=== PATIENT | female | born 1940 | race Caucasian/White ===

== ENCOUNTER 2019-05-06 13:27 | Observation (INO) | payer OTHER, MEDICARE ==
--- OUTSIDE RECORDS SUMMARY | 2019-05-06 13:30 | XMS REPORT ---
:1940 [facility] Address [address] [place] [address] Dr. Burch [address] [place] [id number] Care Team Providers Name Role Phone Unavailable Unavailable Unavailable Problems This patient has no known problems. Allergies, Adverse Reactions, Alerts This patient has no known allergies or adverse reactions. Medications This patient has no known medications.
--- OUTSIDE RECORDS SUMMARY | 2019-05-06 13:30 | XMS REPORT | Clinical Summary ---
:1940 Author Organization [facility] Address [address] [place] [address] Care Team Providers Name Role Phone Scott Delatorre MD Primary Care Provider Allergies No Known Allergies Medications Medication Sig Dispensed Refills Start Date End Date Status simvastatin (ZOCOR) 20 MG Take 20 mg by 0 Active tablet mouth nightly. levothyroxine (SYNTHROID, Take 75 mcg by 0 Active LEVOXYL) 75 mcg tablet mouth daily. spironolactone Take 25 mg by 0 Active (ALDACTONE) 25 MG tablet mouth daily. Active Problems No known active problems Encounters Date Type Specialty Care Team Description 12/12/2018 Surgery Orthopedic Surgery Sae, ARTHROCENTESIS, TMJ, MD Neeraj, MANIPULATION TMJ DDS 12/12/2018 Anesthesia Event Orthopedic Surgery Lissy Torres MD Jatzlau, Amybeth, WILMA 12/12/2018 Hospital Encounter Orthopedic Surgery Gatedieter, Arthralgia of left temporomandibular joint (Primary Dx); MD Pickard Trismus DDS 12/06/2018 Pre-Admit Testing Pre-Admission Gateno, Arthralgia of left temporomandibular joint; Appointment Testing MD Neeraj, Lu DDS 11/14/2018 Hospital Encounter Radiology Sae, Articular disc disorder MD Neeraj, of left temporomandibular DDS joint 11/02/2018 Transcribe Orders Access Neeraj Quevedo MD, DDS 11/02/2018 Transcribe Orders Access Sae, Articular disc disorder MD Neeraj, of left temporomandibular DDS joint (Primary Dx) after 05/05/2018 Social History Tobacco Use Types Packs/Day Years Used Date Never Smoker Smokeless Tobacco: Never Used Alcohol Use Drinks/Week oz/Week Comments No Alcohol Habits Answer Date Recorded How often do you have a drink containing alcohol? Never 12/06/2018 How many drinks containing alcohol do you have on a typical Not asked day when you are drinking? How often do you have six or more drinks on one occasion? Not asked Sex Assigned at Date Recorded Not on file Job Start Date Occupation Industry Not on file Not on file Not on file Travel History Travel Start Travel End No recent travel history available. Last Filed Vital Signs Vital Sign Reading Time Taken Comments Blood Pressure 165/83 12/12/2018 10:47 AM CDT Pulse 73 12/12/2018 10:47 AM CDT Temperature 36.7 C (98 F) 12/12/2018 10:47 AM CDT Respiratory Rate 14 12/12/2018 10:47 AM CDT Oxygen Saturation 100% 12/12/2018 10:47 AM CDT Inhaled Oxygen Concentration - - Weight 57.2 kg (126 lb) 12/12/2018 9:55 AM CDT Height 165.1 cm (5' 5") 12/12/2018 9:55 AM CDT Body Mass Index 20.97 12/12/2018 9:55 AM CDT Plan of Treatment Health Maintenance Due Date Last Done Comments SHINGLES VACCINES (#1) 1988 65+ PNEUMOCOCCAL VACCINE (1 of 2 - PCV13) 2003 INFLUENZA VACCINE 04/19/2019 Procedures Procedure Name Priority Date/Time Associated Diagnosis Comments CLOSED REDUCTION, 12/12/2018 10:11 Articular disc disorder of DISLOCATION, JOINT, AM CDT left temporomandibular TEMPOROMANDIBULAR, WITH joint INTERMAXILLARY FIXATION Case Notes @[facility] [employer] ANESTH FROM GENERAL TO MAC 12/11/18TW Special Needs EST 1HR ECG PRE/POST OP Routine 12/06/2018 5:15 Arthralgia of left Results for PM CDT temporomandibular joint this procedure are in the results section. ESTIMATED GFR Routine 12/06/2018 5:03 Results for PM CDT this procedure are in the results section. BASIC METABOLIC PANEL Routine 12/06/2018 5:03 Arthralgia of left Results for PM CDT temporomandibular joint this procedure are in the results section. HC COMPLETE BLD COUNT Routine 12/06/2018 5:03 Trismus Results for W/AUTO DIFF PM CDT Arthralgia of left this procedure temporomandibular joint are in the results section. MRI TEMPOROMANDIBULAR Routine 11/14/2018 1:57 Articular disc disorder Results for JOINTS PM [employer] of left this procedure temporomandibular joint are in the results section. after 05/05/2018 Results ECG Pre/Post Op (12/06/2018 5:15 PM CDT) Ventricular rate 62 [facility] Atrial rate 62 [facility] OH interval 120 [facility] QRSD interval 88 [facility] QT interval 404 [facility] QTC interval 410 [facility] P axis 1 70 [facility] QRS axis 1 82 [facility] T wave axis 49 [facility] EKG impression Normal sinus [facility] rhythm-Normal ECG-No previous ECGs available-Electronicall y Signed By Rivka Zamora MD ([id number]) on 12/07/2018 6:31:13 PM Specimen Narrative Performed At Performing Organization Address City/[facility]/Zipcode Phone Number [facility] [address] [place] [address] Estimated GFR (12/06/2018 5:03 PM CDT) Pathologist [facility] Estimated GFR 50 (A) mL/min/1.73 [facility] Comment: HOSPITAL CatergoryUnitsInterpretation G1 >=90 Normal or high G2 60-89Mildly decreased Q1q29-84Vawfgd to moderately decreased N2o27-32Smlsqbfpkl to severely decreased G4 15-29Severely decreased G5 <15Kidney failure The eGFR was calculated using the Chronic Kidney Disease Epidemiology Collaboration (CKD-EPI) equation. Interpretation is based on recommendations of the National Kidney Foundation-Kidney Disease Outcomes Quality Initiative (NKF-KDOQI) published in 2014. Specimen Plasma specimen Performing Organization Address City/State/Zipcode Phone Number [facility] DEPARTMENT OF PATHOLOGY AND [address] [place] [address] GENOMIC MEDICINE [address] [address] CBC with platelet and differential (12/06/2018 5:03 PM CDT) WBC 6.63 4.50 - 11.00 [facility] RBC 4.03 (L) 4.20 - 5.50 [facility] m/uL HOSPITAL HGB 12.3 12.0 - 16.0 [facility] g/dL HOSPITAL HCT 38.0 37.0 - 47.0 % [facility] MCV 94.3 82.0 - 100.0 [facility] MCH 30.5 27.0 - 34.0 pg [facility] MCHC 32.4 31.0 - 37.0 [facility] g/dL HOSPITAL RDW - SD 46.4 37.0 - 55.0 fL [facility] MPV 11.4 8.8 - 13.2 [facility] Platelet count 193 150 - 400 k/uL [facility] Nucleated RBC 0.00 /100 WBC [facility] Neutrophils 53.5 39.0 - 69.0 % [facility] Lymphocytes 33.8 25.0 - 45.0 % [facility] Monocytes 7.4 0.0 - 10.0 % [facility] Eosinophils 3.9 0.0 - 5.0 % [facility] Basophils 1.2 (H) 0.0 - 1.0 % [facility] Immature granulocytes 0.2Comment: 0.0 - 1.0 % [facility] "[facility] granulocytes" (promyelocytes , myelocytes, metamyelocytes ) Specimen Blood Performing Organization Address City/State/Zipcode Phone Number [facility] DEPARTMENT OF PATHOLOGY AND [address] [place] [address] GENOMIC MEDICINE [address] [address] Basic metabolic panel (12/06/2018 5:03 PM CDT) Sodium 138 135 - 148 mEq/L [facility] Potassium 4.4 3.5 - 5.0 mEq/L [facility] Chloride 100 98 - 112 mEq/L [facility] CO2 24 24 - 31 mEq/L [facility] Anion gap 14@ANIO 7 - 15 mEq/L [facility] BUN 16 8 - 23 mg/dL [facility] Creatinine 1.06 (H) 0.50 - 0.90 mg/dL [facility] Glucose 78 65 - 99 mg/dL [facility] Calcium 10.2 8.8 - 10.2 mg/dL [facility] Specimen Plasma specimen Performing Organization Address City/State/Zipcode Phone Number [facility] DEPARTMENT OF PATHOLOGY AND [address] [place] [address] GENOMIC MEDICINE [facility] [address] [place] [address] MRI Temporomandibular Joints (11/14/2018 1:57 PM [employer]) Specimen Narrative Performed At EXAMINATION:MRI TEMPOROMANDIBULAR JOINTS [facility] CLINICAL HISTORY:M26.632 Articular disc disorder of left temporomandibular joint, 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 TECHNIQUE: Multiplanar MRI imaging of the TMJs without IV Gadolinium was performed during open and closed positions. Dynamic cine sequence was obtained. FINDINGS: RIGHT: There is anterior subluxation and translation of the intra-articular disc during closed mouth position which demonstrates complete reduction and recapture during open mouth position. The mandibular condyle demonstrates normal contour and bone bautista signal. The articular fossa is unremarkable. There is no evidence of osteoarthritic changes. There is no joint effusion. LEFT: There is anterior subluxation and significant anterior translation of the intra -articular disc during closed mouth position which demonstrates no evidence of reduction or recapture during open mouth position. There is minimal joint effusion in the superior joint compartment. There is a limited mouth opening. The mandibular condyle demonstrates normal contour and bone bautista signal. The articular fossa is unremarkable. There is no evidence of osteoarthritic changes. IMPRESSION: Mild anterior subluxation of the intra-articular disc in the right temporomandibular joint with complete reduction and recapture during open mouth position and no evidence of joint effusion or osteoarthritic joint changes. Anterior subluxation of the intra-articular disc in the left temporomandibular joint during closed mouth position with no evidence of recapture or reduction during open mouth position with associated li mited joint motion. There is minimal joint effusion in the superior joint compartment. 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 TECHNIQUE: Multiplanar MRI imaging of the TMJs without IV Gadolinium was performed during open and closed positions. Dynamic cine sequence was obtained. FINDINGS: RIGHT: There is anterior subluxation and translation of the intra-articular disc during closed mouth position which demonstrates complete reduction and recapture during open mouth position. The mandibular condyle demonstrates normal contour and bone bautista signal. The articular fossa is unremarkable. There is no evidence of osteoarthritic changes. There is no joint effusion. LEFT: There is anterior subluxation and significant anterior translation of the intra -articular disc during closed mouth position which demonstrates no evidence of reduction or recapture during open mouth position. There is minimal joint effusion in the superior joint compartment. There is a limited mouth opening. The mandibular condyle demonstrates normal contour and bone bautista signal. The articular fossa is unremarkable. There is no evidence of osteoarthritic changes. IMPRESSION: Mild anterior subluxation of the intra-articular disc in the right temporomandibular joint with complete reduction and recapture during open mouth position and no evidence of joint effusion or osteoarthritic joint changes. Anterior subluxation of the intra-articular disc in the left temporomandibular joint during closed mouth position with no evidence of recapture or reduction during open mouth position with associated limited joint motion. There is minimal joint effusion in the superior joint compartment. [id number] Performing Organization Address City/State/Zipcode Phone Number [facility] [address] [place] [address] after 05/05/2018 Insurance Payer Benefit Plan / Subscriber ID Effective Phone Address Type Group Dates MEDICARE MEDICARE PART A xxxxxxxxxxx 2003-[place], [place] Medicare AND B ent COMMERCIAL MISC MISC COMMERCIAL xxxxxxxxx 2018-[facility] Commercial ent Advance Directives Type Date Recorded Patient Weight Recorder Explanation Advance Directives, Living Will and Medical Power of Retail Event And Sales Assistant
--- NOTE | 2019-05-06 14:55 | RAD REPORT ---
EXAM DESCRIPTION: CT - Head Brain Wo Cont - 05/06/2019 2:23 pm CLINICAL HISTORY: Syncope COMPARISON: None. TECHNIQUE: Computed axial tomography of the head was obtained. IV contrast was not requested. All CT scans are performed using dose optimization technique as appropriate and may include automated exposure control or mA/KV adjustment according to patient size. FINDINGS: An intracranial bleed is not seen . The ventricles are normal in caliber. No extra-axial fluid collection is noted. Fluid within the sinuses/ mastoids is not seen. IMPRESSION: No acute intracranial abnormality is seen. If patient's symptoms persist MRI of the bra in would be recommended.
[2019-05-06 15:02] LABS: Absolute Lymphocytes (CBC) 0.5 K/uL (0.7-4.9); Basophils % 0.4 % (0-1.3); Hematocrit 38.2 % (36.0-45.0); Lymphocytes % 10.3 % (15.3-44.8); MPV 8.9 fL (7.6-11.3); RBC Red Blood Cell Count 4.09 M/uL (3.86-4.86)
[2019-05-06 15:04] LABS: Protime INR 0.89
[2019-05-06 15:23] LABS: ALT/SGPT 26 U/L (12-78); AST/SGOT 32 U/L (15-37); Albumin 3.8 g/dL (3.4-5.0); Alkaline Phosphatase 67 U/L (45-117); BUN Blood Urea Nitrogen 14 mg/dL (7-18); Bicarbonate 26 mmol/L (21-32); Bilirubin Direct < 0.1 mg/dL (0-0.2); Bilirubin Total 0.3 mg/dL (0.2-1.0); Glucose Level 104 mg/dL (74-106); Magnesium 1.7 mg/dL (1.8-2.4); NT PRO-BNP 389 pg/mL (<450); Potassium 4.5 mmol/L (3.5-5.1); Protein, Total 6.6 g/dL (6.4-8.2); Sodium Level 137 mmol/L (136-145); Troponin (Emerg Dept Use Only) < 0.02 ng/mL (0.0-0.045)
[2019-05-06] MEDS ORDERED: MAGNESIUM SULFATE 1 gm IVPB 1 GM/100 ML BAG IV ONE (15:55)
--- NOTE | 2019-05-06 16:05 | RAD REPORT ---
EXAM DESCRIPTION: Bj Single View05/06/2019 1:59 pm CLINICAL HISTORY: Chest pain COMPARISON: 2014 FINDINGS: The lungs appear clear of acute infiltrate. The heart is normal size IMPRESSION: No acute abnormalities displayed
--- NOTE | 2019-05-06 16:11 | ER ---
Nurse's Notes [facility] Name: Libertad Navarro Age: 78 yrs Sex: Female : 1940 Arrival Date: 05/06/2019 Time: 13:38 Bed 23 Private MD: Diagnosis: Syncope and collapse Presentation: 05/06 13:40 Presenting complaint: Patient states: Syncopal episode that occurred while walking at [facility]. Patient reports feeling well, then suddenly became dizzy and nauseous. EMS reports blood pressure on arrival was 80/50 and after 400 mL bolus of NS, patient was feeling better. Transition of care: patient was not received from another setting of care. Onset of symptoms was May 06, 2019. Risk Assessment: Do you want to hurt yourself or someone else? Patient reports no desire to harm self or others. Initial Sepsis Screen: Does the patient meet any 2 criteria? No. Patient's initial sepsis screen is negative. Does the patient have a suspected source of infection? No. Patient's initial sepsis screen is negative. Care prior to arrival: IV initiated. 20 GA, in the right antecubital area, Glucose check: 136. 13:40 Method Of Arrival: EMS: [facility] ss 13:40 Acuity: DICK 3 ss Historical: - Allergies: 13:42 No Known Allergies; ss - PMHx: 13:42 Hypertension; High Cholesterol; Hypothyroidism; ss - PSHx: 13:42 Hysterectomy; colon; foot; Appendectomy; cataract sb; ss - Immunization history:: Adult Immunizations up to date. - Social history:: Smoking status: Patient/guardian denies using tobacco. - Ebola Screening: : Patient denies exposure to infectious person Patient denies travel to an Ebola-affected area in the 21 days before illness onset. Screenin:40 Abuse screen: Denies threats or abuse. Denies injuries from another. Nutritional ss screening: No deficits noted. Tuberculosis screening: Never had TB. Fall Risk None identified. Assessment: 13:40 General: Appears uncomfortable, Behavior is calm, cooperative, Denies fever, feeling ss ill, fatigue, chills. Pain: Denies pain. Neuro: Level of Consciousness is awake, alert, obeys commands, Oriented to person, place, time, situation, Moves all extremities. Full function Gait is steady, Speech is normal, Facial symmetry appears normal, Pupils are PERRLA. Neuro: Reports dizziness, that began suddenly while walking around shop a syncopal episode. Cardiovascular: Capillary refill < 3 seconds is brisk in bilateral fingers Rhythm is regular. Respiratory: Airway is patent Respiratory effort is even, unlabored, Respiratory pattern is regular, symmetrical, Denies cough, shortness of breath labored breathing, pain with respiration, pain with cough, pain with movement. GI: Patient currently denies abdominal pain, diarrhea, nausea, vomiting. : No signs and/or symptoms were reported regarding the genitourinary system. EENT: Oral mucosa is moist. Derm: Skin is intact, is healthy with good turgor, Skin is dry, Skin is pink, warm \T\ dry. normal. Musculoskeletal: Circulation, motion, and sensation intact. Range of motion: intact in all extremities, Swelling absent. 15:24 Reassessment: Patient appears in no apparent distress at this time. Patient and/or rv family updated on plan of care and expected duration. Pain level reassessed. Patient is alert, oriented x 3, equal unlabored respirations, skin warm/dry/pink. 18:51 Reassessment: Patient appears in no apparent distress at this time. Patient and/or rv family updated on plan of care and expected duration. Pain level reassessed. Patient is alert, oriented x 3, equal unlabored respirations, skin warm/dry/pink. Vital Signs: 13:39 BP 149 / 73; Pulse 71; Resp 15; Temp 97.6(O); Pulse Ox 100% on R/A; Weight 53.07 kg; ss Height 5 ft. 5 in. (165.10 cm); Pain 0/10; 14:00 BP 145 / 71; Pulse 70; Resp 17; Pulse Ox 100% on R/A; rv 15:24 BP 147 / 82; Pulse 73; Resp 16; Pulse Ox 100% ; rv 16:30 BP 166 / 76; Pulse 83; Resp 16; Pulse Ox 100% on R/A; rv 17:30 BP 150 / 82; Pulse 73; Resp 16; Pulse Ox 100% on R/A; rv 18:30 BP 159 / 77; Pulse 59; Resp 15; Pulse Ox 100% on R/A; rv 19:51 BP 148 / 70; Pulse 66; Resp 16; Pulse Ox 98% ; rv 13:39 Body Mass Index 19.47 (53.07 kg, 165.10 cm) NIH Stroke Scale Scores: 13:40 NIHSS Score: 0 ED Course: 13:38 Patient arrived in ED. ss 13:39 Kuldip Logan PA is PHCP. cp 13:39 Francisco Bellamy MD is Attending Physician. cp 13:39 Arm band placed on right wrist. ss 13:40 Patient has correct armband on for positive identification. Placed in gown. Bed in low ss position. Call light in reach. Side rails up X2. patient monitor on. Pulse ox on. NIBP on. 13:40 Maintain EMS IV. Dressing intact. Good blood return noted. Site clean \T\ dry. Gauge \T\ ss site: 20 gauge in R AC. 13:42 Triage completed. ss 13:47 EKG done, by ED staff. lt1 13:58 XRAY Chest (1 view) In Process Unspecified. EDMS 14:25 CT completed. Patient tolerated procedure well. Patient moved back from CT. mw3 14:26 CT Head Brain wo Cont In Process Unspecified. EDMS 15:17 Titi Colon, FUNMI is Primary Nurse. rv 15:17 Wound care: to abrasion, located on right arm was irrigated with normal saline, dressed rv with 4X4s, Patient tolerated well. applied steri strips on the wound. 16:09 Scott Delatorre MD is Hospitalizing Provider. cp 17:09 Urine Microscopic Only Sent. lt1 19:51 No provider procedures requiring assistance completed. Patient admitted, IV remains in rv place. Administered Medications: 16:03 Drug: Magnesium Sulfate 1 grams Route: IVPB; Infused Over: 1 hrs; Site: right em antecubital; Outcome: 16:10 Decision to Hospitalize by Provider. cp 19:51 Admitted to Tele accompanied by tech, via wheelchair, room 409, with chart, Report rv called to MARCE CHOUDHARY 19:51 Condition: stable 19:51 Instructed on the need for admit. 19:52 Patient left the ED. rv NIH Stroke Scale - NIH Stroke Score Date: 05/06/2019 Time: 13:40 Total Score = 0 1a. Level of Consciousness (LOC) - 0(Alert) 1b. Level of Consciousness (LOC) (Year \T\ Age) - 0(Both) 1c. LOC Commands (Open \T\ Closes Eyes/Head Start Assistant Teacher) - 0(Both) 2. Best Gaze (Lateral Gaze Paresis) - 0(Normal) 3. Visual Field Loss - 0(No visual loss) 4. Facial Palsy - 0(Normal) 5a. Left Arm: Motor (10-second hold) - 0(No drift) 5b. Right Arm: Motor (10-second hold) - 0(No drift) 6a. Left Leg: Motor (5-second hold - always test supine) - 0(No drift) 6b. Right Leg: Motor (5-second hold - always test supine) - 0(No drift) 7. Limb Ataxia (finger/nose \T\ heel/chacon - test with eyes open) - 0(Absent) 8. Sensory Loss (pinprick arms/legs/face) - 0(Normal) 9. Best Language: Aphasia (description/naming/reading) - 0(No aphasia) 10. Dysarthria (speech clarity - read or repeat words) - 0(Normal) 11. Extinction and Inattention (visual/tactile/auditory/spatial/personal) - 0(No abnormality) Initials: ss Signatures: Dispatcher [employer] EDTremayne eSqueira, SKIDDER SKIDDER Abigail Solorzano RN RN ss Kuldip Logan PA PA cp Willis, Michelle mw3 Titi Colon, FUNMI RN Celia Trejo lt1
--- NOTE | 2019-05-06 16:11 | EDPHYS ---
Physician Documentation [facility] Name: Libertad Navarro Age: 78 yrs Sex: Female : 1940 Arrival Date: 05/06/2019 Time: 13:38 Bed 23 Private MD: ED Physician Francisco Bellamy HPI: 05/06 13:50 This 78 yrs old Female presents to ER via EMS with complaints of Syncope. cp 13:50 The patient has experienced syncope, collapsed, lost consciousness. Onset: The cp symptoms/episode began/occurred just prior to arrival. Duration: This was a single episode, that lasted an unknown period of time. Context: the episode(s) was witnessed, by a friend, occurred [place], occurred while the patient was walking, Just prior to the episode the patient experienced dizziness, lightheadedness, weakness. Associated injury: The patient did not suffer any apparent associated injury. Associated signs and symptoms: Pertinent positives: weakness, Pertinent negatives: abdominal pain, chest pain, combativeness, confusion, headache. Current symptoms: general weakness. Historical: - Allergies: 13:42 No Known Allergies; ss - PMHx: 13:42 Hypertension; High Cholesterol; Hypothyroidism; ss - PSHx: 13:42 Hysterectomy; colon; foot; Appendectomy; cataract sb; ss - Immunization history:: Adult Immunizations up to date. - Social history:: Smoking status: Patient/guardian denies using tobacco. - Ebola Screening: : Patient denies exposure to infectious person Patient denies travel to an Ebola-affected area in the 21 days before illness onset. ROS: 13:55 Constitutional: Negative for body aches, chills, fever, poor PO intake. cp 13:55 Eyes: Negative for injury, pain, redness, and discharge. cp 13:55 ENT: Negative for drainage from ear(s), ear pain, sore throat, difficulty swallowing, difficulty handling secretions. 13:55 Cardiovascular: Negative for chest pain, edema, palpitations. 13:55 Respiratory: Negative for cough, shortness of breath, wheezing. 13:55 Abdomen/GI: Negative for abdominal pain, nausea, vomiting, and diarrhea, anorexia, black/tarry stool, rectal bleeding. 13:55 Back: Negative for pain at rest, pain with movement. 13:55 : Negative for urinary symptoms. 13:55 Neuro: Positive for syncope, weakness, Negative for altered mental status, headache. 13:55 All other systems are negative. Exam: 13:50 ECG was reviewed by the Attending Physician. cp 13:58 Constitutional: The patient appears in no acute distress, alert, awake, cp non-diaphoretic, non-toxic, well developed, well nourished. 13:58 Head/Face: Normocephalic, atraumatic. Eyes: Pupils equal round and reactive to light, cp extra-ocular motions intact. Lids and lashes normal. Conjunctiva and sclera are non-icteric and not injected. Cornea within normal limits. Periorbital areas with no swelling, redness, or edema. ENT: Nares patent. No nasal discharge, no septal abnormalities noted. Tympanic membranes are normal and external auditory canals are clear. Oropharynx with no redness, swelling, or masses, exudates, or evidence of obstruction, uvula midline. Mucous membranes moist. Neck: Trachea midline, no thyromegaly or masses palpated, and no cervical lymphadenopathy. Supple, full range of motion without nuchal rigidity, or vertebral point tenderness. No Meningismus. Chest/axilla: Normal chest wall appearance and motion. Nontender with no deformity. No lesions are appreciated. 13:58 Cardiovascular: Rate: normal, Rhythm: regular, Heart sounds: murmur, not appreciated, Edema: is not appreciated, JVD: is not appreciated. 13:58 Respiratory: the patient does not display signs of respiratory distress, Respirations: normal, no use of accessory muscles, no retractions, no splinting, no tachypnea, labored breathing, is not present, Breath sounds: are clear throughout, no decreased breath sounds, no stridor, no wheezing. 13:58 Abdomen/GI: Inspection: abdomen appears normal, Bowel sounds: active, all quadrants, Palpation: abdomen is soft and non-tender, in all quadrants. 13:58 Back: pain, is absent, ROM is normal. 13:58 Skin: no rash present. 13:58 Neuro: Orientation: to person, place \T\ time. Mentation: is normal, Cerebellar function: is grossly normal, Motor: moves all fours, strength is normal, Sensation: is normal. Vital Signs: 13:39 BP 149 / 73; Pulse 71; Resp 15; Temp 97.6(O); Pulse Ox 100% on R/A; Weight 53.07 kg; ss Height 5 ft. 5 in. (165.10 cm); Pain 0/10; 14:00 BP 145 / 71; Pulse 70; Resp 17; Pulse Ox 100% on R/A; rv 15:24 BP 147 / 82; Pulse 73; Resp 16; Pulse Ox 100% ; rv 16:30 BP 166 / 76; Pulse 83; Resp 16; Pulse Ox 100% on R/A; rv 17:30 BP 150 / 82; Pulse 73; Resp 16; Pulse Ox 100% on R/A; rv 18:30 BP 159 / 77; Pulse 59; Resp 15; Pulse Ox 100% on R/A; rv 19:51 BP 148 / 70; Pulse 66; Resp 16; Pulse Ox 98% ; rv 13:39 Body Mass Index 19.47 (53.07 kg, 165.10 cm) ss NIH Stroke Scale Scores: 13:40 NIHSS Score: 0 ss MDM: 13:42 Patient medically screened. cp 14:00 Differential Diagnosis: cardiac arrhythmia, GI bleed, idiopathic syncope, seizure, cp vasovagal episode. 16:06 Data reviewed: vital signs, nurses notes, lab test result(s), EKG, radiologic studies, cp CT scan, I have discussed the patient's presentation/case with the attending Emergency Department Physician; and as a result, I will admit patient. Test interpretation: by ED physician or midlevel provider: ECG, plain radiologic studies. Counseling: I had a detailed discussion with the patient and/or guardian regarding: the historical points, exam findings, and any diagnostic results supporting the discharge/admit diagnosis, lab results, radiology results, the need for further work-up and treatment in the hospital. Response to treatment: the patient's symptoms have markedly improved after treatment, and as a result, I will admit patient. Physician consultation: Sharon Fitzgerald MD was called at 16:08, was contacted at 16:08, regarding admission, to the telemetry unit. patient's condition, would like consultation with Dr. DR Anguiano. 05/06 13:39 Order name: Basic Metabolic Panel; Complete Time: 15:36 cp 05/06 13:39 Order name: CBC with Diff; Complete Time: 15:36 cp 05/06 13:39 Order name: LFT's; Complete Time: 15:36 cp 05/06 13:39 Order name: Magnesium; Complete Time: 15:36 cp 05/06 13:39 Order name: NT PRO-BNP; Complete Time: 15:36 cp 05/06 13:39 Order name: PT-INR; Complete Time: 15:36 cp 05/06 13:39 Order name: Troponin (emerg Dept Use Only); Complete Time: 15:36 cp 05/06 13:39 Order name: XRAY Chest (1 view); Complete Time: 16:34 cp 05/06 16:34 Interpretation: Report review. 05/06 13:49 Order name: CT Head Brain wo Cont; Complete Time: 15:06 cp 05/06 15:07 Interpretation: Report reviewed. 05/06 16:10 Order name: Urine Microscopic Only 05/06 17:11 Order name: Urine Dipstick--Ancillary (enter results) lt1 05/06 17:14 Order name: Echo with Doppler EDPR 05/06 17:15 Order name: Troponin I EDPR 05/06 17:15 Order name: Troponin I EDPR 05/06 13:39 Order name: EKG; Complete Time: 13:41 cp 05/06 13:39 Order name: Cardiac monitoring; Complete Time: 13:48 cp 05/06 13:39 Order name: EKG - Nurse/Tech; Complete Time: 13:48 cp 05/06 13:39 Order name: IV Saline Lock; Complete Time: 14:09 cp 05/06 13:39 Order name: Labs collected and sent; Complete Time: 14:09 cp 05/06 13:39 Order name: O2 Per Protocol; Complete Time: 14:09 05/06 13:39 Order name: O2 Sat Monitoring; Complete Time: 14:09 cp 05/06 16:10 Order name: Urine Dipstick-Ancillary (obtain specimen); Complete Time: 17:09 cp 05/06 17:14 Order name: CONS Physician Consult EDMS 05/06 17:14 Order name: Regular EDMS 05/06 17:15 Order name: Carotid Artery Bilateral EDMS EC:50 Rate is 69 beats/min. Rhythm is regular. [place] interval is normal. QRS interval is normal. cp QT interval is normal. Interpreted by me. Reviewed by me. Administered Medications: 16:03 Drug: Magnesium Sulfate 1 grams Route: IVPB; Infused Over: 1 hrs; Site: right em antecubital; Disposition: 05/06/19 16:10 Hospitalization ordered by Scott Delatorre for Observation. Preliminary diagnosis is Syncope and collapse. - Bed requested for Telemetry/MedSurg (observation). - Status is Observation. rv - Condition is Stable. - Problem is new. - Symptoms have improved. UTI on Admission? No NIH Stroke Scale - NIH Stroke Score Date: 05/06/2019 Time: 13:40 Total Score = 0 1a. Level of Consciousness (LOC) - 0(Alert) 1b. Level of Consciousness (LOC) (Year \T\ Age) - 0(Both) 1c. LOC Commands (Open \T\ Closes Eyes/Assurance Sourcing Manager) - 0(Both) 2. Best Gaze (Lateral Gaze Paresis) - 0(Normal) 3. Visual Field Loss - 0(No visual loss) 4. Facial Palsy - 0(Normal) 5a. Left Arm: Motor (10-second hold) - 0(No drift) 5b. Right Arm: Motor (10-second hold) - 0(No drift) 6a. Left Leg: Motor (5-second hold - always test supine) - 0(No drift) 6b. Right Leg: Motor (5-second hold - always test supine) - 0(No drift) 7. Limb Ataxia (finger/nose \T\ heel/chacon - test with eyes open) - 0(Absent) 8. Sensory Loss (pinprick arms/legs/face) - 0(Normal) 9. Best Language: Aphasia (description/naming/reading) - 0(No aphasia) 10. Dysarthria (speech clarity - read or repeat words) - 0(Normal) 11. Extinction and Inattention (visual/tactile/auditory/spatial/personal) - 0(No abnormality) Initials: Addendum: 05/08/2019 15:35 Co-signature as Attending Physician, Francisco Bellamy MD. Signatures: Dispatcher [employer] Eloisa Barber RN Tremayne Ramsay LVN LVN Abigail Solorzano RN RN Kuldip Logan PA PA cp Starr, Gregory, MD MD Titi Colon RN RN rv Corrections: (The following items were deleted from the chart) 05/06 18:24 16:10 Hospitalization Ordered by Scott Delatorre MD for Observation. Preliminary dw diagnosis is Syncope and collapse. Bed requested for Telemetry/MedSurg (observation). Status is Observation. Condition is Stable. Problem is new. Symptoms have improved. UTI on Admission? No. cp 18:37 18:24 05/06/2019 16:10 Hospitalization Ordered by Scott Delatorre MD for dw Observation. Preliminary diagnosis is Syncope and collapse. Bed requested for Telemetry/MedSurg (observation). Status is Observation. Condition is Stable. Problem is new. Symptoms have improved. UTI on Admission? No. dw 19:52 18:37 05/06/2019 16:10 Hospitalization Ordered by Scott Delatorre MD for rv Observation. Preliminary diagnosis is Syncope and collapse. Bed requested for Telemetry/MedSurg (observation). Status is Observation. Condition is Stable. Problem is new. Symptoms have improved. UTI on Admission? No. dw
[2019-05-06] MEDS ORDERED: ONDANSETRON 4 MG/2 ML VIAL IV PRN (17:04)
[2019-05-06 17:14] LABS: Urine Blood NEGATIVE (NEG); Urine Glucose NEGATIVE (NEG); Urine Protein NEGATIVE (NEG); Urine Specific Gravity 1.015 (1.005-1.030)
[2019-05-06 17:20] LABS: Urine Bacteria 20-50 /HPF (<20); Urine Culture Reflex Order REFLEXED; Urine RBC NONE SEEN /HPF (NONE SEEN)
[2019-05-06 22:50] VITALS: BMI 19.8
[2019-05-07 02:25] VITALS: O2SAT 96
[2019-05-07 06:16] LABS: Absolute Lymphocytes (CBC) 0.9 K/uL (0.7-4.9); Basophils % 0.9 % (0-1.3); Hematocrit 36.7 % (36.0-45.0); Lymphocytes % 29.7 % (15.3-44.8); MPV 9.5 fL (7.6-11.3); RBC Red Blood Cell Count 3.95 M/uL (3.86-4.86)
[2019-05-07 06:42] LABS: Potassium 4.1 mmol/L (3.5-5.1)
--- NOTE | 2019-05-07 06:50 | RAD REPORT ---
EXAM DESCRIPTION: US - CP - 05/06/2019 10:12 pm CLINICAL HISTORY: Syncope Preliminary findings provided at the time of the study. COMPARISON: None. TECHNIQUE: Real-time sonographic evaluation of both carotid systems was performed. Henson scale and Do ppler interrogation were performed with waveform tracing bilaterally. FINDINGS: Normal high resistance waveforms are noted in both external carotid arteries. The common c arotid arteries and internal carotid arteries show normal low resistance waveforms. No significant plaque formation is seen. Peak systolic and end diastolic velocity values and the ICA/ CCA ratios are in the non-hemodynamically significant range. Antegrade flow seen in both vertebral arteries. Velocity values and ratios were recorded and are retained in the patient's imaging records. IMPRESSION: No significant atherosclerotic changes noted. No evidence of a hemodynamically significant stenosis.
[2019-05-07 07:16] LABS: Blood Morphology Comment NOT SEEN (NOT SEEN); Platelet Estimate ADEQ; Urine White Blood Cell Casts OK
--- NOTE | 2019-05-07 07:53 | EKG ---
Test Date: 2019-05-06 Test Time: 13:42:38 Ladle Liner Helper: SUKHWINDERT MEASUREMENT RESULTS: Intervals: Rate: 69 IL: 150 QRSD: 86 QT: 398 QTc: 426 [place]: P: 74 IL: 150 QRS: 79 T: 44 INTERPRETIVE STATEMENTS: Normal sinus rhythm Normal ECG No previous ECG available for comparison Electronically Signed On 05-07-19 07:53:05 CDT by Emiliano Anguiano
--- NOTE | 2019-05-07 08:50 | P.SSS ---
Patient History Date of Service: 05/07/19 Reason for admission: PASSED OUT IN [employer] History of Present Illness: MS. 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 SHE FELT WEAK AND PASSED OUT. SHE HAD NO CHEST PAIN BEFORE AND HAS NOT HAD ANY CARDIAC SYMPTOMS BEFORE THIS. Allergies No Known Drug Allergies Allergy (Verified 10/09/14 03:19) Unknown Home Medications: Levothyroxine [Synthroid*] 0.075 mg PO DAILY 10/09/14 Simvastatin [Zocor*] 20 mg PO BEDTIME 10/09/14 Spironolactone [Aldactone*] 25 mg PO DAILY 10/09/14 - Past Medical/Surgical History Has patient received pneumonia vaccine in the past: Yes Diabetic: Yes -: HTN -: hyperlipidemia -: hypothyroidism -: colon sx -: hysterectomy -: sb cataract sx -: sb bunion removed -: appendectomy -: SBO w/ resection - Social History Smoking Status: Never smoker Alcohol use: No CD- Drugs: No Caffeine use: Yes Place of Residence: Home Review of Systems 10-point ROS is otherwise unremarkable Physical Examination - Vital Signs Temperature: 98.9 F Blood Pressure: 142/64 Pulse: 79 Respirations: 16 Pulse Ox (%): 99 - Physical Exam General: Alert, In no apparent distress HEENT: Atraumatic, PERRLA, Mucous membr. moist/pink, EOMI, Sclerae nonicteric Neck: Supple, 2+ carotid pulse no bruit, No LAD, Without JVD or thyroid abnormality Respiratory: Clear to auscultation bilaterally, Normal air movement Cardiovascular: Regular rate/rhythm, Normal S1 S2 Gastrointestinal: Normal bowel sounds, No tenderness Musculoskeletal: No tenderness Integumentary: No rashes Neurological: Normal gait, Normal speech, Normal strength at 5/5 x4 extr, Normal tone, Normal affect Lymphatics: No axilla or inguinal lymphadenopathy - Studies Laboratory Data (last 24 hrs) 05/06/19 14:50: PT 10.5, INR 0.89 05/06/19 14:50: WBC 5.0, Hgb 12.8, Hct 38.2, Plt Count 143 L 05/06/19 14:50: Sodium 137, Potassium 4.5, BUN 14, Creatinine 1.07, Glucose 104 , Magnesium 1.7 L, Total Bilirubin 0.3, AST 32, ALT 26, Alkaline Phosphatase 67 - Diagnosis (Problem(s)) (1) Syncope Current Visit: Yes Status: Acute Plan: MOST LIKELY ORTHOSTASIS OR VASOVAGAL. NO SIGNS OF CARDIAC ISSUES. NORMAL EKG. NO CAROTID BRUITS. HEART RATE IS GOOD. ORDER MRI TO RULE OUT SMALL STROKE. Qualifiers: Syncope type: vasovagal syncope Qualified Code(s): R55 - Syncope and collapse - Disposition Disposition: ROUTINE DISCHARGE
[2019-05-07] MEDS ORDERED: ASPIRIN 81 MG CHEWABLE TABLET PO SCH (09:00)
--- NOTE | 2019-05-07 13:01 | CON ---
This is an 78-year-old woman. Chief Complaint: Loss of consciousness. History Of Present Illness: Mrs. Navarro was out shopping yesterday, it was in the afternoon. That mor harjeet she did have a bowl of cereal, then quit eating and drinking late in the afternoon. She was anupam pping at [employer], felt warm, felt like she needed to sit down, has flash of water on her face, felt na useated, loss of consciousness. There is no apparent bladder or bowel incontinence, tongue biting, c onfusion. She woke up pretty much immediately after lying flat. No injury. Since being in the hosp ital, cardiac enzymes were normal. All other lab tests are normal. She had a CT scan of the head, t elemetry monitoring, EKG, all that are unremarkable. Carotid Doppler likewise is normal. I believe the patient could be discharged home and await on doing a more extensive workup for arrhythmia only i f she has recurring symptoms. This was most likely vasovagal syncope. JULIA/BHAVIK Voice ID: [id number] Report ID: [id number]
--- NOTE | 2019-05-07 15:24 | RAD REPORT ---
EXAM DESCRIPTION: MRI - Brain W/Wo Cont - 05/07/2019 3:13 pm CLINICAL HISTORY: SYNCOPE Headache, drowsiness COMPARISON: Head Brain Wo Cont dated 05/06/2019 TECHNIQUE: Multi-sequence, multiplanar MR imaging of the brain was performed with contrast. FINDINGS: No intracranial hemorrhage, hydrocephalus, or extra-axial fluid collection.Mild brain atro phy noted. No edema or shift of midline structures. No intracranial mass. DWI is negative for acute C VA. The midline structures are normally formed. Mastoid air cells and paranasal sinuses are clear. Post-contrast images show no abnormal enhancement to suggest tumor or infection. IMPRESSION: No acute or concerning intracranial abnormalities. No pathologic post-contrast enhancement suspected.
[2019-05-07] MEDS ORDERED: LORATADINE 10 MG TAB PO ONE (15:40)
[2019-05-07 17:11] VITALS: BP 128/62; TEMP 98.1
--- NOTE | 2019-05-08 07:31 | ECHO ---
HEIGHT: 5 ft 5 in WEIGHT: 119 lb 1.6 oz DATE OF STUDY: 05/07/[address]: Kuldip Logan PAC 2-DIMENSIONAL: YES M.MODE: YES DOPPLER: YES COLOR FLOW: YES TDS: NO PORTABLE: NO DEFINITY: NO BUBBLE STUDY: NO DIAGNOSIS: SYNCOPE CARDIAC HISTORY: CATHERIZATION: NO SURGERY: NO PROSTHETIC VALVE: NO PACEMAKER: NO MEASUREMENTS (cm) DIASTOLIC (NORMALS) SYSTOLIC (NORMALS) IVSd 0.9 (0.6-1.2) LA Diam 2.4 (1.9-4.0) LVEF 63% LVIDd 3.6 (3.5-5.7) LVIDs 2.4 (2.0-3.5) %FS 33% LVPWd 1.0 (0.6-1.2) Ao Diam 2.5 (2.0-3.7) 2 DIMENSIONAL ASSESSMENT: RIGHT ATRIUM: NORMAL LEFT ATRIUM: NORMAL RIGHT VENTRICLE: NORMAL LEFT VENTRICLE: NORMAL TRICUSPID VALVE: NORMAL MITRAL VALVE: NORMAL PULMONIC VALVE: NORMAL AORTIC VALVE: NORMAL PERICARDIAL EFFUSION: NONE AORTIC ROOT: NORMAL LEFT VENTRICULAR WALL MOTION: NORMAL DOPPLER/COLOR FLOW: PHYSIOLOGIC TRICUSPID REGURGITATION. NORMAL RIGHT VENTRICULAR SYSTOLIC PRESSURE. COMMENTS: NORMAL 2D ECHOCARDIOGRAM WITH DOPPLER. TECHNOLOGIST: Douglas LUCIANO
== END 2019-05-07 17:57 | disposition home or self-care (01) ==
LOC: ER 13:27 → ERHOLD 17:02 → 4TH 19:46
PROVIDERS: ADMIT Internal Medicine; ATTEND Internal Medicine
DX: R55 Syncope and collapse (principal); I10 Essential (primary) hypertension; E78.5 Hyperlipidemia, unspecified; E03.9 Hypothyroidism, unspecified; Z90.49 Acquired absence of other specified parts of digestive tract
CPT/HCPCS: 36415; 70450; 70553; 71045; 80048; 80076; 81003; 81015; 83735; 83880; 84484; 85025; 85610; 87086; 87088; 93005; 93306; 93880; 96374; 99285; A9577; G0378; J3475

== ENCOUNTER 2020-08-07 06:29 | Day surgery (SDC) | payer OTHER ==
--- OUTSIDE RECORDS SUMMARY | 2020-08-07 06:31 | XMS REPORT | Continuity of Care Document ---
:1940 Author Organization [facility] t Address [address] [place] [address] Care Team Providers Name Role Phone Nandini BAKER Primary Care Physician Radiology Attending Clinician Unavailable Doctor Unassigned, Name Attending Clinician Unavailable Problems This patient has no known problems. Allergies, Adverse Reactions, Alerts This patient has no known allergies or adverse reactions. Social History Social Habit Start Date Stop Date Quantity Comments Source History [facility] Meth odist Alcohol Std Drinks History [facility] Meth odist Alcohol Binge Sex Assigned At [facility] ethodist Tobacco use and 2018-12-13 2018-12-13 Never used [facility] ethodist exposure 00:00:00 00:00:00 Alcohol intake 2018-12-13 2018-12-13 Current [facility] thodist 00:00:00 00:00:00 non-drinker of alcohol (finding) History [facility] 2018-12-06 2018-12-06 1 [facility] od[facility] Alcohol Frequency 00:00:00 00:00:00 Smoking Status Start Date Stop Date Source Never smoker [facility] t Medications Ordered Filled Start Stop Current Ordering Indication Dosage Frequency Signature Comments Components Source Medication Medication Date Date Medication? Clinician (SIG) Name Name simvastatin Yes 20mg QD Take 20 mg [facility] (ZOCOR) 20 3-26 by mouth Metho di MG tablet 11:41: nightly. st 55 levothyroxi Yes 75ug QD Take 75 [place]nea ston ne 3-26 mcg by [facility] (SYNTHROID, 11:41: mouth st LEVOXYL) 75 55 daily. mcg tablet spironolact Yes 25mg QD Take 25 mg [facility] one 3-26 by mouth [facility] (ALDACTONE) 11:41: daily. st 25 MG 55 tablet Procedures This patient has no known procedures. Plan of Care Planned Activity Planned Date Details Comments Source Future Scheduled 2020-04-19 INFLUENZA VACCINE [facility] 00:00:00 [code = INFLUENZA VACCINE] Future Scheduled 2003 65+ PNEUMOCOCCAL [facility] 00:00:00 VACCINE (1 of 1 - PPSV23) [code = 65+ PNEUMOCOCCAL VACCINE (1 of 1 - PPSV23)] Future Scheduled 1988 [facility] 00:[facility]:00 [code = SHINGLES VACCINES (#1)] Encounters Start End Encounter Admission Attending Care Care Encounter Source Date/Time Date/Time Type Type Clinicians Facility Department ID 2020-02-14 2020-02-14 [facility] Radiology [facility] [id number] 09:10:00 23:59:00 Encounter [place] [id number] [place] [id number] [place] [id number] 2020-02-14 2020-02-14 Orders Doctor KERRY [id number] 00:00:00 00:00:00 Only Unassigned, JHONATHAN [id number] [place] [id number] Results This patient has no known results.
--- OUTSIDE RECORDS SUMMARY | 2020-08-07 06:31 | XMS REPORT | Clinical Summary ---
:1940 Author Organization [facility] Address [address] [place] [address] Care Team Providers Name Role Phone Scott Delatorre MD Primary Care Provider Allergies No Known Active Allergies Medications Medication Sig Dispensed Refills Start Date End Date Status simvastatin (ZOCOR) 20 MG Take 20 mg by 0 Active tablet mouth nightly. levothyroxine (SYNTHROID, Take 75 mcg by 0 Active LEVOXYL) 75 mcg tablet mouth daily. spironolactone Take 25 mg by 0 A ctive (ALDACTONE) 25 MG tablet mouth daily. Active Problems No known active problems Surgical History Surgery Date Site/Laterality Comments APPENDECTOMY 1968 HYSTERECTOMY 1985 BUNIONECTOMY 2003 CATARACT EXTRACTION 2007 COLECTOMY COLON RESECTION 2001 ABDOMINAL ADHESION SURGERY 09/19/2014 - 09/18/2015 CLOSED REDUCTION, 12/12/2018 Left Procedure: DISLOCATION, JOINT, ARTHROCENTES IS, TMJ, TEMPOROMANDIBULAR, WITH MANIPULA TION TMJ; INTERMAXILLARY FIXATION Surgeon: Neeraj Quevedo MD, DDS; Locati on: [facility] OR; Serv ice: Oral Surgery; Latera lity: Left; Medical History Medical History Date Comments Anesthesia severe TMJ/ NFHAP Hypercholesteremia Hypertension Exercises daily WALKS 30 MIN DAILY. PT ABLE TO GO UP TWO FLIGHTS OF STAIRS. Colon cancer (HCC) 2001 NO CHEMO/NO RAD ITATION Wears glasses Hypothyroidism Social History Tobacco Use Types Packs/Day Years [...] six or more drinks on one occasion? No t asked Sex Assigned at Date Recorded Not on file Last Filed Vital Signs Not on file Plan of Treatment Health Maintenance Due Date Last Done Comments SHINGLES VACCINES (#1) 1988 65+ PNEUMOCOCCAL VACCINE (1 of 1 - PPSV23) 2003 INFLUENZA VACCINE 04/19/2020 Results Not on fileafter 08/07/2019 Insurance Payer Benefit Plan / Subscriber ID Effective Phone Address T ype Group Dates MEDICARE MEDICARE PART A [id number] 2003-[place], [place] Medicare AND B ent COMMERCIAL MISC MISC COMMERCIAL [id number] 2018-[facility] Commercial ent Advance Directives For more information, please contact: [phone] Type Date Recorded Patient Preformer [employer] Explanati on Advance Directives, Living Will and Medical Power of Termite Helper
[2020-08-07] MEDS ORDERED: Ringers Lactate 1,000 ML IV ONE (06:56)
[2020-08-07] MEDS ORDERED: CEFAZOLIN/SWI 1gm 1 GM/10 ML SYR ONE (06:56)
[2020-08-07] MEDS ORDERED: LIDOCAINE 1% W/EPI 1:100,000 MDV 20 ML VIAL ONE (07:10)
[2020-08-07] MEDS ORDERED: FENTANYL CITR 100 MCG/2 ML ONE (07:22)
[2020-08-07] MEDS ORDERED: propofoL 200 MG/20 ML VIAL IV ONE (07:22)
[2020-08-07] MEDS ORDERED: LIDOCAINE 2% MPF 5 ML VIAL ONE (07:23)
[2020-08-07] MEDS ORDERED: dexAMETHasone 10 MG/ML VIAL ONE (07:23)
[2020-08-07] MEDS ORDERED: KETOROLAC 30 MG/ML INJ ONE (08:16)
--- NOTE | 2020-08-07 08:17 | P.BOP ---
Preoperative diagnosis: cervical lymphadenopathy Postoperative diagnosis: same Primary procedure: open, excisional cervical lymph node biopsy Detonator Maker: SHAY GOMEZ Estimated blood loss: minimal Specimen: R superfical, jugular chain lymph nodes x 3 Anesthesia: General Complications: None Implants: none Fluids & blood products: 300ml crystalloid Transferred to: Other (Day Surgery) Condition: Good
--- NOTE | 2020-08-07 08:59 | OP ---
Date of Procedure: 08/07/2020 Surgeon: Lakeisha Jaquez MD Pig Machine Supervisor: Gaviota Sorensen. Preoperative Diagnosis: Cervical lymphadenopathy. Postoperative Diagnosis: Cervical lymphadenopathy. Procedure: Open excisional biopsy of right superficial cervical lymph node. Indication For Procedure: Ms. Navarro is an 79-year-old, who presented to her primary care clinic with a 3-month history of scattered moderate lymphadenopathy, which was nonpainful. She had no risk facto rs for squamous cell carcinoma and her head and neck exam was negative for any evidence of a squamous cell primary. She was referred to ENT for further evaluation. 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 We discussed the risks, be nefits, and alternatives to the procedure, and the patient agreed to proceed. Anesthesia: Monitored anesthesia care with sedation and local anesthetic. Description Of Procedure: The patient was brought to the operating room. She was placed under monit ored anesthesia care. A small shoulder roll was placed and the head was turned to the left for expos ure of the right neck. After cleaning the skin with alcohol, the area around the prominent lymph nod es was injected with 4 mL of 1% lidocaine with epinephrine. Bovie electrocautery was used to cut thr ough the skin and subcutaneous tissues. The Watson dissectors were used to dissect through the soft tissues and identify the capsule of the enlarged lymph node. Grasping the enlarge lymph node, the Li gaSure was used to dissect and cauterize soft tissue attachments. A small cluster of lymph nodes was noted including the lymph node of approximately 1.5, 2, and 1 cm. These lymph nodes were dissected and removed as a single specimen. After removal of the lymph nodes, the surgical bed was thoroughly inspected. A small amount of oozing on the surface of the sternocleidomastoid muscle was treated wit h electrocautery. The wound was then thoroughly irrigated with cold saline and closed in layered fas hion using 4-0 Vicryl deep sutures, 5-0 Monocryl subcuticular sutures, and a final wound dressing of Dermabond to provide waterproof closure. The skin was then cleaned and dried and the patient was bro ught to Day Surgery for recovery and discharge. Complications: None. Estimated Blood Loss: Minimal. SH/MODL Voice ID: [id number] Report ID: [id number]
[2020-08-07 09:02] VITALS: BP 155/77; TEMP 96.9; O2SAT 100
== END 2020-08-07 08:55 | disposition home or self-care (01) ==
LOC: OR 06:29
PROVIDERS: ATTEND Otolaryngology
PROC: 07B10ZX Excision of Right Neck Lymphatic, Open Approach, Diagnostic (ICD-10-PCS; principal; 2020-08-07 07:30)
DX: C83.01 Small cell B-cell lymphoma, lymph nodes of head, face, and neck (principal); Z20.828 Contact with and (suspected) exposure to other viral communicable diseases; I10 Essential (primary) hypertension; E78.5 Hyperlipidemia, unspecified
CPT/HCPCS: 93005; 88305; 38500; J2704; J3010; J1100; J0690; J7120